=== PATIENT | male | born 2000 | race Caucasian/White ===

== ENCOUNTER → 2019-09-03 | Outpatient (CLI) | payer OTHER ==
--- NOTE | 2019-09-04 08:40 | EKG ---
[place] [address] [facility] [place] [address] ELECTROCARDIOGRAM REPORT Name: SADI RODRIGUEZ [id number]: 09/03/19 Attend Phys: Rosalind Jimenes MD Discharge: Date of : [birth year] Report #: [id number] THIS REPORT FOR: //name// [facility] Test Date: 2019-09-03 Test Time: 15:35:11 Pat Name: SADI RODRIGUEZ Department: Room: Gender: M Athletic Coordinator: Casey SEARS : 2000 Requested By: Rosalind Jimenes Order Number: [id number] MD: Blake Ponce Measurements Intervals [place] Rate: 60 P: 76 UT: 153 QRS: 82 QRSD: 101 T: 53 QT: 397 QTc: 397 Interpretive Statements Sinus rhythm Early repol pattern Compared to ECG 02/01/2015 17:08:24 Sinus bradycardia no longer present Electronically Signed On 09-04-2019 8:40:43 CDT by Blake Ponce [email or web address] <ELECTRONICALLY SIGNED> By: Blake Ponce MD, [facility] 09/04/19 0840 [id number] Blake Ponce MD, [facility] /EPI
== END ==
LOC: CV 15:09
DX: R00.1 Bradycardia, unspecified (principal)